=== PATIENT | female | born 1985 | race African-American/Black ===

== ENCOUNTER 2018-11-10 17:04 | Inpatient (IN) | payer MEDICAID ==
[~2018-11-10] VITALS: Ht 165.1 cm; Wt 103.4 kg
[2018-11-10] MEDS ORDERED: DEXT 5%/LR + PITOCIN 20UNITS/L 1,000 ML IV SCH (17:53)
[2018-11-10] MEDS ORDERED: MISOPROSTOL 100MCG TABLET VG SCH (18:00)
[2018-11-10] MEDS ORDERED: METHYLERGONOVINE MALEATE 0.2 MG/ML IM PRN (18:00)
[2018-11-10] MEDS ORDERED: LIDOCAINE HCL 1% 20ML VIAL (Pyxis) INJ INFIL SCH (18:00)
[2018-11-10] MEDS ORDERED: BUTORPHANOL TARTRATE 2 MG/ML VIAL IV PRN (18:00)
[2018-11-10] MEDS ORDERED: DINOPROSTONE 10MG VAGINAL INSERT VG NR (18:00)
[2018-11-10] MEDS ORDERED: CARBOPROST TROMETHAMINE 250 MCG/ML AMPUL IM PRN (18:00)
[2018-11-10 18:27] LABS: CLARITY URINE CLOUDY (CLEAR); COLOR URINE YELLOW (YELLOW); KETONES URINE NEGATIVE (NEGATIVE); LEUKOCYTE ESTERASE URINE 2+ (NEGATIVE); NITRITE URINE NEGATIVE (NEGATIVE); OCCULT BLOOD URINE NEGATIVE (NEGATIVE); PROTEIN URINE NEGATIVE (NEGATIVE); SPECIFIC GRAVITY URINE 1.013 (1.005-1.030); UROBILINOGEN URINE 0.2 E.U./dL (0.2-1.0)
[2018-11-10 18:30] LABS: BASOPHILS % 0.4 % (0.0-2.0); EOSINOPHILS % 0.7 % (0.0-5.0); HEMATOCRIT. 35.1 % (36.0-48.0); HEMOGLOBIN. 11.9 g/dL (12.0-16.0); LYMPHOCYTES % 20.2 % (20.0-50.0); MEAN CORPUSCULAR HEMOGLOBIN 27.8 pg (28.0-32.0); MEAN CORPUSCULAR VOLUME 82.4 fL (81.0-99.0); MEAN PLATELET VOLUME 8.3 fl (7.4-10.4); NEUTROPHILS % 71.7 % (40.0-76.0); PLATELET 219 x1000/uL (130-400); RED BLOOD CELL COUNT 4.27 mill/uL (4.2-5.4); RED CELL DISTRIBUTION WIDTH 15.7 % (11.6-14.6)
[2018-11-10 18:38] LABS: INR 0.9; PARTIAL THROMBOPLASTIN TIME 29.1 sec (23.4-31.0); PROTHROMBIN TIME 9.8 sec (9.6-11.0)
[2018-11-10 18:39] LABS: *BARBITURATES SCREEN URINE NEGATIVE (NEGATIVE)
[2018-11-10 18:40] LABS: *AMPHETAMINES SCREEN URINE NEGATIVE (NEGATIVE); *BENZODIAZEPINES SCREEN URINE NEGATIVE (NEGATIVE); *COCAINE SCREEN URINE NEGATIVE (NEGATIVE); METHADONE URINE SCREEN NEGATIVE (NEGATIVE); OPIATES URINE SCREEN NEGATIVE (NEGATIVE); PHENCYCLIDINE URINE SCREEN NEGATIVE (NEGATIVE)
[2018-11-10 18:41] LABS: CANNABINOID URINE SCREEN NEGATIVE (NEGATIVE)
[2018-11-10] MEDS: LACTATED RINGERS 1,000 ML IV SCH (18:41)
[2018-11-10 19:07] LABS: HEPATITIS B SURFACE ANTIGEN NEGATIVE
[2018-11-10] MEDS ORDERED: ROPIVACAINE HCL/PF EPIDURAL 200 ML EPI SCH (20:15)
[2018-11-10] MEDS ORDERED: ONDANSETRON HCL 4MG/2ML INJ IV PRN (20:15)
[2018-11-11] MEDS: LACTATED RINGERS 1,000 ML IV SCH ×3 (07:04→16:05)
[2018-11-11] MEDS ORDERED: CITRIC ACID/SODIUM CITRATE SOLN 30ML UDC PO SCH (09:30)
[2018-11-11] MEDS ORDERED: ROPIVACAINE HCL/PF EPIDURAL 200 ML EPI ONE (13:50)
[2018-11-11] MEDS ORDERED: ROPIVACAINE HCL 2MG/ML (0.2%) 200ML BOTTLE IR ONE (14:00)
[2018-11-11] MEDS ORDERED: FENTANYL CITRATE/PF 50MCG/ML 2ML VIAL ONE (14:28)
[2018-11-11] MEDS ORDERED: OXYTOCIN 10 UNITS/ML 1ML ONE (14:28)
[2018-11-11] MEDS ORDERED: MINERAL OIL 30ML BOTTLE PR SCH (18:45)
[2018-11-11 19:28] LABS: CHLORIDE 105 mEq/L (98-107)
[2018-11-11 19:33] LABS: BASOPHILS % 0.3 % (0.0-2.0); EOSINOPHILS % 0.1 % (0.0-5.0); HEMATOCRIT. 36.4 % (36.0-48.0); LYMPHOCYTES % 10.2 % (20.0-50.0); MEAN CORPUSCULAR HEMOGLOBIN 27.5 pg (28.0-32.0); MEAN CORPUSCULAR VOLUME 83.3 fL (81.0-99.0); MONOCYTES % 3.6 % (2.0-8.0); NEUTROPHILS % 85.8 % (40.0-76.0); PLATELET 226 x1000/uL (130-400); RED BLOOD CELL COUNT 4.36 mill/uL (4.2-5.4); RED CELL DISTRIBUTION WIDTH 15.9 % (11.6-14.6)
[2018-11-11 19:38] LABS: D-DIMER 3.68 mg/L FEU (<0.50); INR 0.9; PROTHROMBIN TIME 9.7 sec (9.6-11.0)
[2018-11-11] MEDS ORDERED: DEXT 5%/LR + PITOCIN 20UNITS/L 1,000 ML IV SCH (20:04)
[2018-11-11] MEDS ORDERED: RHO(D) IMMUNE GLOBULIN 300 MCG/SYR IM PRN (20:15)
[2018-11-11] MEDS ORDERED: IBUPROFEN 400MG TABLET PO PRN (20:15)
[2018-11-11] MEDS ORDERED: DIPHENHYDRAMINE 25MG CAPSULE PO PRN (20:15)
[2018-11-11] MEDS ORDERED: LANOLIN OINT 7GM TUBE TOP PRN (20:15)
[2018-11-11] MEDS ORDERED: ACETAMINOPHEN WITH CODEINE 300/30MG TABLET PO PRN (20:15)
[2018-11-11 20:45] VITALS: BP 142/108
[2018-11-12] MEDS: LABETALOL HCL 100MG TABLET PO SCH ×2 (00:37→12:33)
[2018-11-12 01:30] VITALS: BP 139/79
[2018-11-12] MEDS: IBUPROFEN 800MG TABLET PO PRN ×2 (06:34→15:57)
[2018-11-12 07:36] VITALS: BP 130/71
[2018-11-12 07:42] LABS: BASOPHILS % 0.1 % (0.0-2.0); EOSINOPHILS % 0.1 % (0.0-5.0); HEMATOCRIT. 32.7 % (36.0-48.0); HEMOGLOBIN. 10.8 g/dL (12.0-16.0); LYMPHOCYTES % 11.7 % (20.0-50.0); MEAN CORPUSCULAR HEMOGLOBIN 27.1 pg (28.0-32.0); MEAN PLATELET VOLUME 8.3 fl (7.4-10.4); MONOCYTES % 7.4 % (2.0-8.0); NEUTROPHILS % 80.7 % (40.0-76.0); PLATELET 193 x1000/uL (130-400); RED BLOOD CELL COUNT 3.99 mill/uL (4.2-5.4); RED CELL DISTRIBUTION WIDTH 15.6 % (11.6-14.6)
[2018-11-12] MEDS: PRENATAL VIT/FE FUMARATE/FA TABLET PO SCH (09:55)
[2018-11-12 16:05] VITALS: BP 119/50
[2018-11-12 20:00] VITALS: BP 132/76
[2018-11-13] VITALS: BP 134/74
[2018-11-13] MEDS: LABETALOL HCL 100MG TABLET PO SCH (00:25)
[2018-11-13 06:14] VITALS: BP 146/74
[2018-11-13] MEDS: IBUPROFEN 800MG TABLET PO PRN (06:14)
[2018-11-13 07:31] VITALS: BP 131/79
[2018-11-13] MEDS: PRENATAL VIT/FE FUMARATE/FA TABLET PO SCH (09:30)
== END 2018-11-13 11:00 | disposition home or self-care (01) | DRG 560 ==
LOC: OBSVTOIN 17:04 → 8 EST LDRP 17:04 → 8EST 11-11 20:30
PROVIDERS: ADMIT Obstetrics & Gynecology; ATTEND Obstetrics & Gynecology
PROC: 10E0XZZ Delivery of Products of Conception, External Approach (ICD-10-PCS; principal; 2018-11-11)
PROC: 0W8NXZZ Division of Female Perineum, External Approach (ICD-10-PCS; 2018-11-11)
PROC: 3E0R3BZ Introduction of Anesthetic Agent into Spinal Canal, Percutaneous Approach (ICD-10-PCS; 2018-11-11)
PROC: 00HU33Z Insertion of Infusion Device into Spinal Canal, Percutaneous Approach (ICD-10-PCS; 2018-11-11)
DX: O48.0 Post-term pregnancy (principal); O13.4 Gestational [pregnancy-induced] hypertension without significant proteinuria, complicating childbirth; O77.0 Labor and delivery complicated by meconium in amniotic fluid; Z37.0 Single live birth; Z3A.41 41 weeks gestation of pregnancy
CPT/HCPCS: 36415; 80305; 81003; 84550; 85379; 85384; 86592; 86703; 86762; 86850; 86900; 87340; G0378; J2590; J2795; J3010